=== PATIENT | female | born 1990 | race African-American/Black ===

== ENCOUNTER 2021-11-21 11:54 | Emergency (ER) | payer OTHER ==
[~2021-11-21] VITALS: Ht 160 cm; Wt 75.0 kg
[2021-11-21 12:10] VITALS: BP 121/80
[2021-11-21] MEDS ORDERED: ACETAMINOPHEN 325MG TABLET PO ONE (13:30)
== END 2021-11-21 17:08 | disposition left against medical advice (07) ==
LOC: ER 11:54
DX: M54.89 Other dorsalgia (principal)
CPT/HCPCS: 99283